=== PATIENT | female | born 1985 | race Two or more races ===

== ENCOUNTER 2019-06-01 05:45 | Inpatient (IN) | payer OTHER ==
[~2019-06-01] VITALS: Ht 160 cm; Wt 77.1 kg
[2019-06-01] MEDS ORDERED: OBSTETRIX ONE1 EACH PO (07:54)
== END 2019-06-03 15:48 | disposition home or self-care (01) | DRG 807 ==
LOC: LDR 05:45 → OB/GYN 05:45
PROVIDERS: ADMIT Obstetrics & Gynecology
PROC: 10E0XZZ Delivery of Products of Conception, External Approach (ICD-10-PCS; principal; 2019-06-01)
PROC: 0KQM0ZZ Repair Perineum Muscle, Open Approach (ICD-10-PCS; 2019-06-01)
PROC: 3E033VJ Introduction of Other Hormone into Peripheral Vein, Percutaneous Approach (ICD-10-PCS; 2019-06-01)
PROC: 4A1HXCZ Monitoring of Products of Conception, Cardiac Rate, External Approach (ICD-10-PCS; 2019-06-01)
DX: O70.1 Second degree perineal laceration during delivery (principal); Z37.0 Single live birth; Z3A.39 39 weeks gestation of pregnancy; Z22.330 Carrier of Group B streptococcus